=== PATIENT | female | born 1955 | race Caucasian/White ===

== ENCOUNTER 2022-07-25 11:57 | Emergency (ER) | payer MEDICARE, SELFPAY ==
[2022-07-25 12:18] VITALS: BP 152/73; PULSE 67; RESP 18; TEMP 36.1; O2SAT 100; BMI 38.0
[2022-07-25 12:30] VITALS: PULSE 72; O2SAT 98
[2022-07-25 12:31] VITALS: BP 151/69; PULSE 72; O2SAT 98
[2022-07-25 13:00] VITALS: PULSE 79; O2SAT 99
[2022-07-25 13:07] VITALS: BP 157/67; PULSE 77; O2SAT 99
--- NOTE | 2022-07-25 13:46 | PC.NURSE ---
wound care done by provider, Jennifer.
--- NOTE | 2022-07-25 15:08 | ED.SKABFB ---
HPI - Skin/Abscess/Foreign Bdy <Anny Rodriguez PA-C - Last Filed: 07/25/22 15:14> General Chief complaint: Skin/Abscess/Foreign Body Stated complaint: Abcess on stomach, Nausea Time Seen by Provider: 07/25/22 12:18 Source: patient Mode of arrival: Ambulatory Limitations: no limitations History of Present Illness HPI narrative: Patient is extremely pleasant 66 years old female, with history of diabetes mellitus per her own account moderately well controlled with oral medication, hemoglobin A1c 6.8, who noted in lower abdomen area of redness and pain about 1 week ago. She was seen by her primary care physician 3 days ago who placed her on doxycycline suspected MRSA infection. Patient has been taking doxycycline for past 3 days however she noticed the area of redness is gradually spreading. She denies fever or chills. She denies nausea vomiting diarrhea. She denies any discharge from the wound area. Mainly due to worsening pain and redness she is seeking attention in ER. Related Data Previous Rx's Medication Instructions Recorded clindamycin HCl 300 mg capsule 300 mg PO TID 10 days #30 caps 07/25/22 mupirocin 2 % topical ointment See Rx Instructions .Route 07/25/22 .COMPLEX #22 grams Allergies Allergy/AdvReac Type Severity Reaction Status Date / Time amoxicillin Allergy Verified 07/25/22 13:23 erythromycin base Allergy Verified 07/25/22 13:23 blood thinners AdvReac Uncoded 07/25/22 13:23 Review of Systems <Anny Rodriguez PA-C - Last Filed: 07/25/22 15:14> Review of Systems Narrative: 12 point review of systems is negative except for those stated above Patient History <Anny Rodriguez PA-C - Last Filed: 07/25/22 15:14> Social History Smoking Status: Former smoker Smoking Status: Former smoker alcohol intake frequency: holidays/special occasions only Substance Use Type: does not use Exam <GABE Luong Last Filed: 07/25/22 15:14> Narrative Exam Narrative: GENERAL: 66 year old patient appears stated age. Well-developed patient, in no acute distress. Appears comfortable hospital bed. HEAD: Atraumatic. Normocephalic. EYES: Pupils equal round and reactive. Extraocular motions intact. No scleral icterus. No injection or drainage. ENT: Nose without bleeding, purulent drainage. Throat without erythema, tonsillar hypertrophy or exudate. Airway patent. NECK: Trachea midline. Non tender CARDIOVASCULAR: Regular rate and rhythm without murmurs, gallops, or rubs. RESPIRATORY: Clear to auscultation. Breath sounds equal bilaterally. No wheezes, rales, or rhonchi. GASTROINTESTINAL: Abdomen soft, non-tender, nondistended. EXTREMITIES: No edema or joint tenderness. BACK: Nontender without deformity or crepitance. No flank tenderness. NEURO: AOx3. No focal deficits SKIN: Approximately 6 cm indurated reddened area in suprapubic area left side. There is no fluctuant center per se, picture more consistent with abdominal skin cellulitis, no exudate. Initial Vital Signs Initial Vital Signs: Vital Signs Temperature 97 F L 07/25/22 12:18 Pulse Rate 67 07/25/22 12:18 Respiratory Rate 18 07/25/22 12:18 Blood Pressure 152/73 H 07/25/22 12:18 Pulse Oximetry 100 07/25/22 12:18 Oxygen Delivery Method 07/25/22 12:18 <Amy Parker DO - Last Filed: 07/26/22 12:47> Initial Vital Signs Initial Vital Signs: Vital Signs Temperature 97 F L 07/25/22 12:18 Pulse Rate 67 07/25/22 12:18 Respiratory Rate 18 07/25/22 12:18 Blood Pressure 152/73 H 07/25/22 12:18 Pulse Oximetry 100 07/25/22 12:18 Oxygen Delivery Method 07/25/22 12:18 Course <Anny Rodriguez PA-C - Last Filed: 07/25/22 15:14> Vital Signs Vital signs: Vital Signs - 8 hr 07/25/22 12:18 07/25/22 12:30 07/25/22 12:31 Temperature 97 F L Pulse Rate 67 72 Respiratory Rate 18 Blood Pressure 152/73 H 151/69 H Pulse Oximetry 100 98 Oxygen Delivery Method Room Air 07/25/22 12:31 07/25/22 13:00 07/25/22 13:07 Temperature Pulse Rate 72 79 77 Respiratory Rate Blood Pressure Pulse Oximetry 98 99 99 Oxygen Delivery Method Room Air 07/25/22 13:07 Temperature Pulse Rate Respiratory Rate Blood Pressure 157/67 H Pulse Oximetry Oxygen Delivery Method <Amy DO Elena - Last Filed: 07/26/22 12:47> Vital Signs Vital signs: Vital Signs - 8 hr 07/25/22 12:18 07/25/22 12:30 07/25/22 12:31 Temperature 97 F L Pulse Rate 67 72 Respiratory Rate 18 Blood Pressure 152/73 H 151/69 H Pulse Oximetry 100 98 Oxygen Delivery Method Room Air 07/25/22 12:31 07/25/22 13:00 07/25/22 13:07 Temperature Pulse Rate 72 79 77 Respiratory Rate Blood Pressure Pulse Oximetry 98 99 99 Oxygen Delivery Method Room Air 07/25/22 13:07 Temperature Pulse Rate Respiratory Rate Blood Pressure 157/67 H Pulse Oximetry Oxygen Delivery Method MDM - Skin/Abscess/Foreign Bdy <Anny Rodriguez PA-C - Last Filed: 07/25/22 15:14> MDM Narrative Medical decision making narrative: Discussed with patient diagnosis and treatment Several etiologies for patient's symptoms considered including, but not limited to: Developing MRSA infection, cellulitis, in setting of diabetes mellitus We will try different approach, topical mupirocin ointment, unchanged antibiotic to clindamycin. Advised to follow-up with her PCP, if abscess develop, she may need I&D Findings and discharge diagnosis discussed with patient/family followed by verbalization of understanding Return precautions discussed with patient/family whom verbalize understanding of diagnosis and plan Discharge Plan Departure Patient Disposition: Home Clinical Impression: Cellulitis, Abscess of skin or subcutaneous tissue Instructions: DI for Cellulitis -- Adult Activity Restrictions/Additional Instructions: *You have been diagnosed with lower abdominal cellulitis *What to do: *Please continue to take your regular medications as directed. New medication prescriptions sent to your pharmacy: - New medication written as a paper prescription Clindamycin *Please follow up with your primary care provider in 2-3 days, if symptoms continue to be bothersome, i.e spreading redness, pain, discharge , call for an appointment. Let them know you were seen in the Emergency Department and that we ask that you be seen in follow up. We will electronically transmit a record of today's note if your PCP is in our system *Return to Emergency Department if you should have any new, worsening or concerning symptoms, such as fever greater than 101 F, shaking chills, spreading redness around wound, worsening pain, persistent vomiting or other bothersome symptoms Prescriptions: New clindamycin HCl 300 mg capsule 300 mg PO TID 10 Days Qty: 30 0RF mupirocin 2 % ointment See Rx Instructions .ROUTE .COMPLEX Qty: 22 1RF Rx Instructions: apply thin film to affected area twice a day for 10 days Stand Alone Forms: Patient Portal/API <Amy Parker, - Last Filed: 07/26/22 12:47> Cosign ED Attending Cosignature Attestation: I was immediately available in the department for consultation. Documentation has been reviewed.
== END 2022-07-25 13:47 | disposition home or self-care (01) ==
PROVIDERS: Emergency Provider Physician Assistant Medical
DX: L03.311 Cellulitis of abdominal wall (principal)
CPT/HCPCS: 99281

== ENCOUNTER 2023-08-26 16:30 | Outpatient (RCR) | payer MEDICARE, SELFPAY ==
--- NOTE | 2023-08-26 17:00 | PT.OIE ---
Current Diagnoses Unsteadiness on feet (08/26/23) Dizziness and giddiness (08/26/23) Visit Care Team Role Provider Type Eran Chaparro DO Family Provider Non-Staff Primary Care Provider Specialty: Family Practice Address: [address] , [place], [address] Email: NATALIA Srivastava Attending Provider Non-Staff Referring Provider Specialty: Nursing Address: [address] [place] [address], [address] Email: Physical Therapy Initial Evaluation PT-OP-A Visit Information Start: 08/26/23 17:41 Freq: Status: Active Protocol: Document 08/26/23 16:45 DCW (Rec: 08/26/23 17:46 DCW [id number]) Out-Patient Physical Therapy Visit Information Visit Information Visit Type Initial Evaluation Visit Start Time 16:45 Visit Stop Time 17:40 Visit Number 1 Number of HOP FARMER Visits 0 Evaluation Information Evaluation Date 08/26/23 PT-OP-B Current Condition Start: 08/26/23 17:41 Freq: Status: Active Protocol: Document 08/26/23 16:45 DCW (Rec: 08/27/23 08:54 DCW [id number]) Current Condition History of Current Condition Onset Date Four year history Current Complaints Frequent spontaneous episodes of imbalance, dizziness History of Current Condition Pt is a 67 year old female presenting with a four year history of imbalance. First began during a very stressful period of time, she would get spontaneous episodes of imbalance lasting 1-8 seconds, occurring every few minutes. Called 911, registered pharmacy technician came out to check her and she was told she was fine. Symptoms continued for a few days, pt then presented to a local ED. At that time, doctor was able to trigger symptoms during what sounds like a left [place]- Hallpike. Also performed an MRI and CT scan at that time, per pt they were all normal. Pt reports that over the last few years, symptoms have largely remained the same, occurring about once a day, but over the last few weeks, frequency increased to the point of 6-8 x/day. Reports she has tried a self-Brad at home multiple times, most recently last week, and actually since last week frequency has decreased, and today she has not had any episodes. Reports symptoms can occur at any time, whether sitting, standing, or even driving. Has had to stop driving after having an episode while driving. Treatment Goals Patient/Caregiver Goals Eliminate episodes of dizziness and return to driving PT-OP-C Subjective Start: 08/26/23 17:41 Freq: Status: Active Protocol: Document 08/26/23 16:45 DCW (Rec: 08/26/23 17:46 DCW [id number]) OP-PT Subjective Patient Comments Patient Comments They think it's those crystals. Patient Questionnaires Dizziness Handicap Inventory DHI Score 24% DHI Functional Impairment 20 to 39% Impaired (Score 20- 39) PT-OP-O Vestibular Start: 08/26/23 17:41 Freq: Status: Active Protocol: Document 08/26/23 16:45 DCW (Rec: 08/26/23 17:48 DCW [id number]) Vestibular Assessment Auditory Tests Garcia Test Within normal limits Rinne Test Negative Air Conduction Results Equal Visual Testing Smooth Pursuits Horizontal WNL Smooth Pursuits Vertical WNL Saccades Horizontal WNL Heave Test Negative Thrust Head Negative Convergence Test WNL Positional Testing Chente-Hallpike Negative Left,Negative Right Rolling Test Negative Left,Negative Right PT-OP-Q Treatments Start: 08/26/23 17:41 Freq: Status: Active Protocol: Document 08/26/23 16:45 DCW (Rec: 08/26/23 17:46 DCW [id number]) Self-Care/Home Management Treatment Activities Self-Care/Home Management Activities Intensive A&P of inner ear, discussion of possible DDx, various treatment expectations PT-OP-T Assessment and Plan Start: 08/26/23 17:41 Freq: Status: Active Protocol: Document 08/26/23 16:45 DCW (Rec: 08/27/23 08:54 DCW [id number]) Physical Therapy Assessment Rehab Potential Rehabilitation Potential Fair Evaluation Complexity Number of Personal Factors/Comorbidities 3 or More Number of Body Systems Impaired 4 or More Clinical Presentation at Evaluation Unstable Impairments Impairments Balance,Coordination, Functional Activities, Functional Mobility,Vestibular Goals Two Impairment Pt no longer driving due to spontaneous episodes of dizziness Senior Care Goal (LTG) Pt to return to driving after experiencing no episodes of dizziness over a two week period. LTG Duration 10/25/23 One Impairment Pt does not have an appropriate home exercise program Short Term Goal (STG) Pt to be independent and compliant with an appropriate HEP STG Duration 09/24/23 Assessment Summary Assessment Pt presents today with an entirely negative vestibular evaluation. Pt did, however, report upon entering the clinic, that today was the first day in months that she didn't have any episodes of dizziness, so it is unclear if she would test differently on another day. Subjectively, pt 's symptoms do not sound like they are strongly related to her vestibular system, and do not fit well into any obvious inner ear disorder. Brief, episodic episodes of dizziness are suggestive of potential BPPV, however if pt's description is accurate, these episodes are completely independent of any positional changes. Positional testing was negative today, however due to the fact that [place]- Hallpike/positional testing of BPPV has a reasonably high incidence of false negatives, retesting should be performed at a later date. With pt's complaint of poor balance overall, further balance testing should also be performed at her follow up. If balance testing shows any concerns, pt would likely benefit from balance training to decrease falls risk and improve confidence, which may help reduce subjective symptoms. Physical Therapy Plan Frequency and Duration Frequency of Treatment 2x/Week Plan of Care Start Date 08/26/23 Plan of Care End Date 10/25/23 Therapeutic Interventions Therapeutic Interventions Balance Training,Canalithic Repositioning,Coordination Training,Gait Training,Home Exercise Program,Manual Therapy,Neuromuscular Re- education,Patient/Caregiver Education,Self-Care/Home Management,Soft Tissue Mobilization,Therapeutic Activities,Therapeutic Exercises Next Visit Focus/Plan Next Note Type Treatment Note Next Visit Plan Balance testing, recheck positional testing
--- NOTE | 2023-08-26 17:00 | PT.OPPOC ---
Physical, Occupational & Speech Therapy At [facility] Current Diagnoses Unsteadiness on feet (08/26/23) Dizziness and giddiness (08/26/23) Visit Care Team Role Provider Type Eran Chaparro DO Family Provider Non-Staff Primary Care Provider Specialty: Family Practice Address: [address] , [place], [address] Email: NATALIA Srivastava Attending Provider Non-Staff Referring Provider Specialty: Nursing Address: [address] [place], [address] Email: Plan Of Care PT-OP-T Assessment and Plan Start: 08/26/23 17:41 Freq: Status: Active Protocol: Document 08/26/23 16:45 DCW (Rec: 08/27/23 08:54 DCW [id number]) Physical Therapy Assessment Rehab Potential Rehabilitation Potential Fair Evaluation Complexity Number of Personal Factors/Comorbidities 3 or More Number of Body Systems Impaired 4 or More Clinical Presentation at Evaluation Unstable Impairments Impairments Balance,Coordination, Functional Activities, Functional Mobility,Vestibular Goals Two Impairment Pt no longer driving due to spontaneous episodes of dizziness Fruit Culler Goal (LTG) Pt to return to driving after experiencing no episodes of dizziness over a two week period. LTG Duration 10/25/23 One Impairment Pt does not have an appropriate home exercise program Short Term Goal (STG) Pt to be independent and compliant with an appropriate HEP STG Duration 09/24/23 Assessment Summary Assessment Pt presents today with an entirely negative vestibular evaluation. Pt did, however, report upon entering the clinic, that today was the first day in months that she didn't have any episodes of dizziness, so it is unclear if she would test differently on another day. Subjectively, pt 's symptoms do not sound like they are strongly related to her vestibular system, and do not fit well into any obvious inner ear disorder. Brief, episodic episodes of dizziness are suggestive of potential BPPV, however if pt's description is accurate, these episodes are completely independent of any positional changes. Positional testing was negative today, however due to the fact that Chen[place]- Hallpike/positional testing of BPPV has a reasonably high incidence of false negatives, retesting should be performed at a later date. With pt's complaint of poor balance overall, further balance testing should also be performed at her follow up. If balance testing shows any concerns, pt would likely benefit from balance training to decrease falls risk and improve confidence, which may help reduce subjective symptoms. Physical Therapy Plan Frequency and Duration Frequency of Treatment 2x/Week Plan of Care Start Date 08/26/23 Plan of Care End Date 10/25/23 Therapeutic Interventions Therapeutic Interventions Balance Training,Canalithic Repositioning,Coordination Training,Gait Training,Home Exercise Program,Manual Therapy,Neuromuscular Re- education,Patient/Caregiver Education,Self-Care/Home Management,Soft Tissue Mobilization,Therapeutic Activities,Therapeutic Exercises Next Visit Focus/Plan Next Note Type Treatment Note Next Visit Plan Balance testing, recheck positional testing Plan of Care Dates Plan of Care Start Date 08/26/23 Plan of Care End Date 10/25/23 Electronically Signed by: Vladimir Whitmore, PT 08/27/23 0855 If you are in agreement with this Plan of Care, please return a signed and dated copy. I have reviewed this Plan of Care and certify that the skilled therapy services above are required to meet the patient?s needs. Physician Signature Date Printed Name and Credentials Clinical Instructor Signature Printed Name and Credentials
--- NOTE | 2023-09-20 15:58 | PT.OPDS ---
Current Diagnoses Unsteadiness on feet (08/26/23) Dizziness and giddiness (08/26/23) Visit Care Team Role Provider Type Eran Chaparro DO Family Provider Non-Staff Primary Care Provider Specialty: Family Practice Address: [address] , [place], [address] Email: NATALIA Srivastava Attending Provider Non-Staff Referring Provider Specialty: Nursing Address: [address] [place] [address], [address] Email: Visit Number Visit Number 1 Discharge Summary PT-OP-B Current Condition Start: 08/26/23 17:41 Freq: Status: Active Protocol: Document 08/26/23 16:45 DCW (Rec: 08/27/23 08:54 DCW [id number]) Current Condition History of Current Condition Onset Date Four year history Current Complaints Frequent spontaneous episodes of imbalance, dizziness History of Current Condition Pt is a 67 year old female presenting with a four year history of imbalance. First began during a very stressful period of time, she would get spontaneous episodes of imbalance lasting 1-8 seconds, occurring every few minutes. Called 911, photoengraving supervisor came out to check her and she was told she was fine. Symptoms continued for a few days, pt then presented to a local ED. At that time, doctor was able to trigger symptoms during what sounds like a left [place]- Hallpike. Also performed an MRI and CT scan at that time, per pt they were all normal. Pt reports that over the last few years, symptoms have largely remained the same, occurring about once a day, but over the last few weeks, frequency increased to the point of 6-8 x/day. Reports she has tried a self-Brad at home multiple times, most recently last week, and actually since last week frequency has decreased, and today she has not had any episodes. Reports symptoms can occur at any time, whether sitting, standing, or even driving. Has had to stop driving after having an episode while driving. Treatment Goals Patient/Caregiver Goals Eliminate episodes of dizziness and return to driving PT-OP-C Subjective Start: 08/26/23 17:41 Freq: Status: Active Protocol: Document 08/26/23 16:45 DCW (Rec: 08/26/23 17:46 DCW [id number]) OP-PT Subjective Patient Comments Patient Comments They think it's those crystals. Patient Questionnaires Dizziness Handicap Inventory DHI Score 24% DHI Functional Impairment 20 to 39% Impaired (Score 20- 39) PT-OP-O Vestibular Start: 08/26/23 17:41 Freq: Status: Active Protocol: Document 08/26/23 16:45 DCW (Rec: 08/26/23 17:48 DCW [id number]) Vestibular Assessment Auditory Tests Garcia Test Within normal limits Rinne Test Negative Air Conduction Results Equal Visual Testing Smooth Pursuits Horizontal WNL Smooth Pursuits Vertical WNL Saccades Horizontal WNL Heave Test Negative Thrust Head Negative Convergence Test WNL Positional Testing [place]-Hallpike Negative Left,Negative Right Rolling Test Negative Left,Negative Right PT-OP-T Assessment and Plan Start: 08/26/23 17:41 Freq: Status: Active Protocol: Document 09/20/23 15:57 DCW (Rec: 09/20/23 15:58 DCW [id number]) Physical Therapy Assessment Assessment Summary Assessment Pt phoned clinic requesting discharge, reports she is scheduled for an upcoming surgery and cannot fit in follow-up visits into her schedule. Physical Therapy Plan Discharge Physical Therapy Discharge Reasons Patient Request Next Visit Focus/Plan Next Note Type Discharge Summary
== END 2023-09-20 16:08 ==
LOC: PHYS 16:30
PROVIDERS: Family Provider Family Medicine; PCP Family Medicine; Referring Provider Nurse Practitioner Family; Visit Provider Nurse Practitioner Family
DX: R26.81 Unsteadiness on feet (principal); R42 Dizziness and giddiness
CPT/HCPCS: 97163; 97535

== ENCOUNTER 2023-10-14 06:13 | Day surgery (SDC) | payer MEDICARE, SELFPAY ==
[2023-10-04 15:09] VITALS: BMI 38.0
[2023-10-14] VITALS (10 sets, daily range): BP systolic 91–171; BP diastolic 52–96; PULSE 52–82; RESP 16–22; TEMP 36.1–36.2; O2SAT 94–98; BMI 36.5
[2023-10-14] MEDS: LACTATED RINGERS 1,000 ML 42 ML IV ×2 (07:16→09:00)
[2023-10-14] MEDS: ACETAMINOPHEN 325 MG TABLET 975 MG PO (07:16)
[2023-10-14 07:43] LABS: Add Manual Diff / Slide Review NO; Basophils Absolute Auto 100 /uL (0-100); Basophils Percent Auto 1.4 % (0-2); Eosinophils Absolute Auto 200 /uL (0-450); Eosinophils Percent Auto 2.5 % (2-4); Hematocrit 39.8 % (36-46); Lymphocytes Absolute Auto 2300 /uL (1100-4500); Lymphocytes Percent Auto 28.3 % (25-40); Mean Corpuscular HGB Conc 32.8 % (30-36); Mean Corpuscular Hemoglobin 28.3 PG (26-34); Mean Corpuscular Volume 86.4 fL (80-100); Monocytes Absolute Auto 600 /uL (0-900); Neutrophils Absolute Auto 4800 /uL (1500-7000); Neutrophils Percent Auto 59.8 % (50-75); Platelet Count 244 X10^3/uL (150-400); Red Blood Cell Count 4.61 X10^6/uL (4.0-5.2); Red Cell Distribution Width 14.4 % (11.6-14.8)
--- NOTE | 2023-10-14 07:51 | PM.PREOP ---
Pre-operative Note Interval Note History & Physical reviewed/Exam performed by Physician: Yes Changes to H&P: No
--- NOTE | 2023-10-14 07:55 | SUR.PREOP ---
Block start time [0745] . Monitoring initiated and maintained throughout procedure. Oxygen and medications given per anesthesiologist instructions. Patient remained stable throughout procedure, no adverse reactions noted. Block end time [0752].
[2023-10-14] MEDS: CEFAZOLIN 2 GM/100 ML PREMIX 100 ML IV (08:00)
[2023-10-14] MEDS: TRANEXAMIC ACID 1,000 MG VIAL 1000 MG INJ (08:15)
--- NOTE | 2023-10-14 09:05 | SUR.OPER ---
Lateral on padded OR bed with keller bag positioner, head on pillow, gel axillary roll in place, bottom leg bent with gel pad under knee to foot, upper leg straight and supported with pillows. Operative arm secured in shoulder positioning suspension device. non-operative arm secured on padded arm board. Safety belt at hip, tape over blanket securing lower legs.
[2023-10-14] MEDS: BUPIVACAINE 0.5% (PF) 30 ML, EPINEPHrine 0.15 MG INJ (09:17)
--- NOTE | 2023-10-14 09:53 | PM.OP.1 ---
Operative Date/Time/Diagnoses Date of procedure: 10/14/23 Time of procedure: 09:54 Pre-op diagnosis: Right rotator cuff tear, biceps tendonitis and acromioclavicular joint arthritis Post-op diagnosis: same Procedure & Clinicians Procedure: 1. Right rotator cuff repair 2. Biceps tenodesis arthroscopic 3. Distal clavicle excision arthroscopic 4. Subacromial decompression and acromioplasty 5. Extensive debridement, arthroscopic Same procedure as scheduled: Yes Indications: Indications: This is a 68-year-old female who Has a history of right shoulder pain. Has had no response thus far to nonoperative treatment. We discussed at length that surgery for a rotator cuff tear is primarily for pain and no guarantees were made regarding strength and range of motion. Patient was again explained the risks, benefits and alternatives to surgery. All questions were answered. The patient wished to proceed. Surgeon: Holden Stevens Golf Superintendent: Samina Huddleston Anesthesia Type: General Operative Notes Findings: Findings: Glenohumeral joint-mild signs of osteoarthritis with grade 2 chondromalacia. There is degenerative changes noted to the labrum anteriorly and posteriorly Biceps tendon: Partial tears with synovitis and erythema throughout Subscapularis: Intact Inferior capsule: Intact Rotator cuff: The supraspinatus had a complete tear at the footprint Subacromial space: Extensive synovitis, acromial spur noted Acromioclavicular joint: Arthritis as noted under direct visualization and preoperative imaging Closure Type: primary Specimen(s): none sent Prosthetic devices, grafts, tissues, transplants, or devices: Fiber tack anchor times 2, SwiveLock anchor x2 Estimated Blood Loss (mL): 10 Blood products transfused: none Procedure in detail: The patient was seen preoperatively. Risks and benefits were explained, and my initials were marked on the right shoulder. A block was performed by anesthesia. The patient was brought to the operating room and placed supine on the operating table and underwent smooth induction of general anesthesia. There were then placed into a lateral decubitus position. 2 g of Ancef were given intravenously prior to the start of the operation, and 1 g of TXA was also given. The arm was prepped and draped in the standard sterile fashion using chlorhexidine. Appropriate drying time was observed. Before beginning the procedure, a time-out was performed and again my initials were confirmed the correct side. 15 cc of 0.25% Marcaine with epinephrine were injected into the subacromial space prior to start. A standard posterior portal was then established. On entering the glenohumeral joint there was the above-noted cartilage pathology. An anterior portal was established outside in. In the glenohumeral joint, the biceps was noted to be partially torn and erythematous and the subscapularis was intact. The undersurface of the rotator cuff was torn at the footprint and was noted to be communicating. The inferior capsule was noted to be intact. There was some labral degeneration noted both anterior and posterior. Extensive synovitis noted. The labral tissue was examined, it was noted to have [id number] degenerative changes with fraying and tearing. There was subsequent expected degenerative changes in synovitis along the anterior articular capsule and a reflection of the capsule onto the glenoid bone. There were synovitic changes at the biceps tendon and its anchor on the supraglenoid tubercle. For these aforementioned reasons, arthroscopic debridement was performed with a 4.0 mm shaver, through the anterior portal, of the labral tissue, the articular capsule, biceps anchor complex, and glenoid bone. We then established into the subacromial space and a lateral portal was made. A bursectomy was then performed. The coracoclavicular ligament was minimally released off the anterior acromion and a gentle acromioplasty was performed enough for better visualization and to remove significant spurs. This was done with a 4.0 mm shaver and transformed the acromion from a type 2 acromion into a type 1 acromion. Once bursectomy, acromioplasty was performed we had full visualization of the rotator cuff in the anterior margin of the biceps. In order to perform a biceps tenodesis, an anterior anchor was placed and 2 passes were made through the biceps tendon, this was then placed through a knotless mechanism of the anchor for a secure repair and biceps tenodesis. It was noted at this time that the patient had complete 1.5 cm tear of the supraspinatus. We then freshened up the footprint with a shaver and debrided the cuff tear edges. Two medial row Anchors were placed. I then passed sequentially from anterior to posterior. 2 lateral row trans osseous equivalent knotless anchors were placed creating a secure double row knotless repair. Final arthroscopic pictures were obtained demonstrating a secure repair. Last, I turned my attention to the distal clavicle excision. The to her preoperative pain directly over the AC joint and imaging as well as under direct visualization having spurs and narrow joint space we decided to go forward with a distal clavicle excision. Using a 4.0 mm bur, I excised about 8 mm of distal clavicle medial to the joint. The wounds were closed with 3-0 Monocryl and dressed with Xeroform, 4x4s, ABDs and they were placed into a sling. Patient was woken from anesthesia and transported to recovery unit without any complications. Assisting participation: This operation could not have been safely performed (without compromising the technical results or length of the procedure) without the assistance of a skilled surgical garment assembly supervisor. The surgical garment assembly supervisor was medically necessary for proper positioning, retraction and manipulation of instruments, proper exposure, graft prep, and manipulation of tissue. Complications: none Post-operative Condition: stable Disposition: PACU Plan for aftercare: Postoperatively patient will be nonweightbearing to the operative extremity. Must remain in a sling for 6 weeks with no active range of motion. Okay for dressings to come off in 3 days, take a shower with warm soap and water and then placed Band-Aids over the wounds. After a total of 5 days from surgery all dressings may come off. Keep follow-up appointment in 2 weeks.
--- NOTE | 2023-10-14 11:40 | SUR.PHASEII ---
Shoulder Immobilizer applied. To be adjusted by PT.
== END 2023-10-14 11:50 | disposition home or self-care (01) ==
PROVIDERS: Nurse Anesthetist, Certified Registered; Family Provider Family Medicine; PCP Family Medicine; Referring Provider Orthopaedic Surgery; Visit Provider Orthopaedic Surgery
PROC: (CPT 29827; principal; 2023-10-14 07:45)
DX: M75.111 Incomplete rotator cuff tear or rupture of right shoulder, not specified as traumatic (principal); M75.21 Bicipital tendinitis, right shoulder; M19.011 Primary osteoarthritis, right shoulder; M75.41 Impingement syndrome of right shoulder; M94.211 Chondromalacia, right shoulder; M65.811 Other synovitis and tenosynovitis, right shoulder; G89.18 Other acute postprocedural pain
CPT/HCPCS: 29827; 29823; 29826; 29824; 29828; 64450; 85025; J0171; J0330; J0360; J0690; J1100; J2405; J3010

== ENCOUNTER 2023-11-29 13:06 | Emergency (ER) | payer MEDICARE, SELFPAY ==
[2023-11-29 13:54] VITALS: BP 135/76; PULSE 70; RESP 17; TEMP 36.5; O2SAT 97; BMI 38.0
--- NOTE | 2023-11-29 14:04 | PC.NURSE ---
During triage patient decided she did not want to stay to be seen. This RN advised patient given health hx and concerns she should be evaluated by provider. Patient acknowledged teaching and verbalized understanding on leaving without being seen. Educated patient on signs and symptoms to warrant a return to ED, patient acknowledged.
--- NOTE | 2023-11-29 19:37 | ED.URI ---
HPI - URI/Sore Throat General Chief Complaint: Upper Respiratory Symptoms Stated Complaint: covid Source: patient Mode of arrival: Ambulatory History of Present Illness HPI Narrative: Patient left without seeing provider Related Data Home Medications Medication Instructions Recorded Confirmed amlodipine 2.5 mg tablet 2.5 mg PO DAILY 10/14/23 10/14/23 aspirin 81 mg chewable tablet 81 mg PO DAILY 10/14/23 10/14/23 (Aspirin Childrens) isosorbide mononitrate 30 mg 30 mg PO DAILY 10/14/23 10/14/23 tablet,extended release 24 hr levothyroxine 100 mcg tablet 100 mcg PO DAILY 10/14/23 10/14/23 (Synthroid) metformin 500 mg tablet 500 mg PO BID 10/14/23 10/14/23 omeprazole 40 mg capsule,delayed 40 mg PO DAILY 10/14/23 10/14/23 release pravastatin 20 mg tablet 20 mg PO DAILY 10/14/23 10/14/23 Previous Rx's Medication Instructions Recorded acetaminophen 325 mg tablet 975 mg (3 x 325 mg) PO NOW PRN 10/14/23 Pain, Moderate (4-6) #90 tabs oxycodone 5 mg tablet 5 mg PO PACUNOW PRN Mild or 10/14/23 moderate pain #30 tabs Allergies Allergy/AdvReac Type Severity Reaction Status Date / Time amoxicillin Allergy Doesn't Verified 11/29/23 13:54 remember Sulfa (Sulfonamide Allergy Doesn't Verified 11/29/23 13:54 Antibiotics) remember atorvastatin AdvReac Muscle Pain Verified 11/29/23 13:54 erythromycin base AdvReac Diarrhea Verified 11/29/23 13:54 rosuvastatin [From Crestor] AdvReac Muscle Pain Verified 11/29/23 13:54 blood thinners AdvReac Muscle Pain Uncoded 10/14/23 06:48 Patient History Medical History (Updated 11/29/23 @ 14:06 by Radha Dominguez RN) Anesthesia complication Pernicious anemia Neck infection (12/19/95) Clotting disorder Claustrophobia Chronic narrow angle glaucoma Asthma Arthritis Arrhythmia Hearing loss Headache Heart murmur Genital herpes Fatty liver disease, nonalcoholic History of angina Hypothyroid HLD (hyperlipidemia) Diabetes CAD (coronary artery disease) Surgical History Hx of tubal ligation History of total bilateral knee replacement History of carpal tunnel surgery of right wrist (02/11/18) Hx of cardiac catheterization History of ankle surgery History of orthopedic surgery Hx of cholecystectomy 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) Social History household members: spouse Smoking Status: Former smoker alcohol intake: current Smoking Status: Former smoker alcohol intake frequency: holidays/special occasions only Substance Use Type: does not use Exam Initial Vital Signs Initial Vital Signs: Vital Signs Temperature 97.7 F 11/29/23 13:54 Pulse Rate 70 11/29/23 13:54 Respiratory Rate 17 11/29/23 13:54 Blood Pressure 135/76 11/29/23 13:54 Pulse Oximetry 97 11/29/23 13:54 Oxygen Delivery Method Room Air 11/29/23 13:54 Course Vital Signs Vital signs: Vital Signs - 8 hr 11/29/23 13:54 Temperature 97.7 F Pulse Rate 70 Respiratory Rate 17 Blood Pressure 135/76 Pulse Oximetry 97 Oxygen Delivery Method Room Air Discharge Plan Departure Patient Disposition: Left Without Being Seen Clinical Impression: Patient left before evaluation by physician Prescriptions: No Action metformin 500 mg tablet 500 mg PO BID isosorbide mononitrate 30 mg tablet extended release 24 hr 30 mg PO DAILY amlodipine 2.5 mg tablet 2.5 mg PO DAILY omeprazole 40 mg capsule,delayed release(DR/EC) 40 mg PO DAILY levothyroxine [Synthroid] 100 mcg tablet 100 mcg PO DAILY aspirin [Aspirin Childrens] 81 mg Tablet,Chewable 81 mg PO DAILY pravastatin 20 mg tablet 20 mg PO DAILY acetaminophen 325 mg Tablet 975 mg PO NOW PRN (Reason: Pain, Moderate (4-6)) Qty: 90 0RF oxycodone 5 mg Tablet 5 mg PO PACUNOW PRN (Reason: Mild or moderate pain) Qty: 30 0RF
== END 2023-11-29 14:06 | disposition left against medical advice (07) ==
PROVIDERS: Emergency Provider Emergency Medicine; Family Provider Family Medicine; PCP Family Medicine
CPT/HCPCS: 99281

== ENCOUNTER 2025-05-25 21:23 | Emergency (ER) | payer MEDICARE, SELFPAY ==
[2025-05-25] VITALS (8 sets, daily range): BP systolic 134–183; BP diastolic 69–83; PULSE 59–71; RESP 14–24; TEMP 36.7; O2SAT 95–98; BMI 38.0
--- NOTE | 2025-05-25 21:35 | EKG_ITS ---
[facility] [address] [address] Test Date: 2025-05-25 Pat Name: Nneka Mckenzie Department: [facility] Room: Gender: Female [place] [place] [employer]: SIMONA : 1955 Requested By: Order Number: [id number] Reading MD: Measurements Intervals [place] Rate: 67 P: 17 CA: 180 QRS: -64 QRSD: 136 T: 65 QT: 452 QTc: 477 Interpretive Statements Normal sinus rhythm Left axis deviation Right bundle branch block
--- NOTE | 2025-05-25 21:38 | ED.CHESTPAIN ---
HPI - Chest Pain <Merrill Duran MD - Last Filed: 05/28/25 08:25> General Chief Complaint: Chest Pain Stated Complaint: Pain in heart area and in back Time Seen by Provider: 05/25/25 21:33 Source: patient Mode of arrival: Ambulatory Limitations: no limitations History of Present Illness HPI narrative: Patient here with has been complaints of left-sided chest pain that radiates to the left scapula off and on for the past 24 hours. Did take home nitroglycerin and did have relief but pain would come back. Patient has single-vessel bypass in [facility]. Not recent. Patient just had echocardiogram stress test at [facility] 2 weeks ago, sees her debone supervisor Dr. Jansen. Has experienced fatigue recently. Currently no chest pain but has discomfort in the left scapular area. No sweating no nausea. No shortness of breath. Related Data Home Medications ?Medication ?Instructions ?Recorded ?Confirmed amlodipine 2.5 mg tablet 2.5 mg PO DAILY 10/14/23 05/25/25 aspirin 81 mg chewable tablet 81 mg PO DAILY 10/14/23 05/25/25 (Aspirin Childrens) isosorbide mononitrate 30 mg 30 mg PO DAILY 10/14/23 05/25/25 tablet,extended release 24 hr levothyroxine 100 mcg tablet 100 mcg PO DAILY 10/14/23 05/25/25 (Synthroid) metformin 500 mg tablet 500 mg PO BID 10/14/23 05/25/25 omeprazole 40 mg capsule,delayed 40 mg PO DAILY 10/14/23 05/25/25 release pravastatin 20 mg tablet 20 mg PO DAILY 10/14/23 05/25/25 albuterol sulfate 90 mcg/actuation 2 puff inhalation Q4H PRN 05/25/25 05/25/25 aerosol inhaler shortness of breath or wheezing valacyclovir 500 mg tablet 500 mg PO BID 05/25/25 05/25/25 Previous Rx's ?Medication ?Instructions ?Recorded nitroglycerin 0.3 mg sublingual 0.3 mg sublingual Q5M PRN chest 05/26/25 tablet pain #10 tabs Allergies Allergy/AdvReac Type Severity Reaction Status Date / Time amoxicillin Allergy Doesn't Verified 05/25/25 21:28 remember Sulfa (Sulfonamide Allergy Doesn't Verified 05/25/25 21:28 Antibiotics) remember atorvastatin AdvReac Muscle Pain Verified 05/25/25 21:28 erythromycin base AdvReac Diarrhea Verified 05/25/25 21:28 rosuvastatin (From Crestor) AdvReac Muscle Pain Verified 05/25/25 21:28 blood thinners AdvReac Muscle Pain Uncoded 05/25/25 21:28 Review of Systems <Merrill Duran MD - Last Filed: 05/28/25 08:25> Review of Systems Narrative: GENERAL: Negative chills, fatigue, malaise, fever, sweats. HEENT: Negative sinus pain, ear pain, sore throat RESPIRATORY: Negative dyspnea, cough CARDIOVASCULAR: Positive chest pain, negative palpitations GASTROINTESTINAL: Negative vomiting, nausea, abdominal pain : Negative dysuria, frequency, hematuria MUSCULOSKELETAL: Negative muscle or bony pain SKIN: Negative rash, skin lesions NEUROLOGIC: Negative weakness, numbness ROS Unobtainable: All systems reviewed & are unremarkable except as noted in HPI and below Patient History <Merrill Duran MD - Last Filed: 05/28/25 08:25> Medical History (Updated 05/25/25 @ 21:41 by Merrill Duran MD) Anesthesia complication Pernicious anemia Neck infection (12/19/95) Clotting disorder Claustrophobia Chronic narrow angle glaucoma Asthma Arthritis Arrhythmia Hearing loss Headache Heart murmur Genital herpes Fatty liver disease, nonalcoholic History of angina Hypothyroid HLD (hyperlipidemia) Diabetes CAD (coronary artery disease) Surgical History Hx of tubal ligation History of total bilateral knee replacement History of carpal tunnel surgery of right wrist (02/11/18) Hx of cardiac catheterization History of ankle surgery History of orthopedic surgery Hx of cholecystectomy 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 EYES: Pupils equal round ENT: Mucous membranes moist. NECK: Trachea midline. CARDIOVASCULAR: Regular rate and rhythm RESPIRATORY: Clear to auscultation. Breath sounds equal bilaterally. No wheezes, rales, or rhonchi. GASTROINTESTINAL: Abdomen soft, non-tender BACK: No flank tenderness. EXTREMITIES: No gross deformities. NEURO: AOx4. Clear speech SKIN: Warm and dry PSYCH: Not anxious, is cooperative Initial Vital Signs Initial Vital Signs: Vital Signs Temperature 98.1 F 05/25/25 21:30 Pulse Rate 70 05/25/25 21:30 Respiratory Rate 18 05/25/25 21:30 Blood Pressure 183/83 H 05/25/25 21:30 Pulse Oximetry 98 05/25/25 21:30 Oxygen Delivery Method Room Air 05/25/25 21:30 <Ragini Yu MD - Last Filed: 05/26/25 04:44> Initial Vital Signs Initial Vital Signs: Vital Signs Temperature 98.1 F 05/25/25 21:30 Pulse Rate 70 05/25/25 21:30 Respiratory Rate 18 05/25/25 21:30 Blood Pressure 183/83 H 05/25/25 21:30 Pulse Oximetry 98 05/25/25 21:30 Oxygen Delivery Method Room Air 05/25/25 21:30 Course <Merrill Duran MD - Last Filed: 05/28/25 08:25> Orders Ordered: Discontinued Medications Aspirin (Aspirin 81 Mg Chew Tab) 324 mg PO NOW ONE Stop: 05/25/25 21:45 Last Admin: 05/25/25 22:05 Dose: 324 mg Documented By: KATYA Nitroglycerin (Nitroglycerin Oint 1 Inch/Gm Oint...G.) 0.5 inch TOP NOW ONE Stop: 05/25/25 21:45 Last Admin: 05/25/25 22:06 Dose: 0.5 inch Documented By: KATYA Vital Signs Vital signs: Vital Signs - 8 hr 05/25/25 21:30 05/25/25 21:47 05/25/25 21:56 Temperature 98.1 F Pulse Rate 70 71 Respiratory Rate 18 Blood Pressure 183/83 H 162/78 H Pulse Oximetry 98 Oxygen Delivery Method Room Air 05/25/25 22:00 05/25/25 22:00 05/25/25 22:30 Temperature Pulse Rate 62 Respiratory Rate 14 Blood Pressure 138/70 155/74 H Pulse Oximetry 98 Oxygen Delivery Method 05/25/25 22:30 05/25/25 23:00 05/25/25 23:01 Temperature Pulse Rate 60 62 62 Respiratory Rate 16 24 22 Blood Pressure Pulse Oximetry 96 96 96 Oxygen Delivery Method 05/25/25 23:01 05/25/25 23:30 05/25/25 23:30 Temperature Pulse Rate 59 L Respiratory Rate 24 Blood Pressure 137/69 134/70 Pulse Oximetry 95 Oxygen Delivery Method 05/26/25 00:00 05/26/25 00:00 05/26/25 00:30 Temperature Pulse Rate 60 66 Respiratory Rate 23 20 Blood Pressure 126/66 Pulse Oximetry 94 96 Oxygen Delivery Method 05/26/25 00:30 05/26/25 01:00 05/26/25 01:00 Temperature Pulse Rate 58 L Respiratory Rate 21 Blood Pressure 140/68 134/63 Pulse Oximetry 94 Oxygen Delivery Method 05/26/25 01:30 05/26/25 01:30 05/26/25 02:00 Temperature Pulse Rate 57 L 58 L Respiratory Rate 18 19 Blood Pressure 133/66 Pulse Oximetry 96 96 Oxygen Delivery Method 05/26/25 02:00 Temperature Pulse Rate Respiratory Rate Blood Pressure 141/68 H Pulse Oximetry Oxygen Delivery Method <Ragini Yu MD - Last Filed: 05/26/25 04:44> Orders Ordered: Discontinued Medications Aspirin (Aspirin 81 Mg Chew Tab) 324 mg PO NOW ONE Stop: 05/25/25 21:45 Last Admin: 05/25/25 22:05 Dose: 324 mg Documented By: KATYA Nitroglycerin (Nitroglycerin Oint 1 Inch/Gm Oint...G.) 0.5 inch TOP NOW ONE Stop: 05/25/25 21:45 Last Admin: 05/25/25 22:06 Dose: 0.5 inch Documented By: KATYA Vital Signs Vital signs: Vital Signs - 8 hr 05/25/25 21:30 05/25/25 21:47 05/25/25 21:56 Temperature 98.1 F Pulse Rate 70 71 Respiratory Rate 18 Blood Pressure 183/83 H 162/78 H Pulse Oximetry 98 Oxygen Delivery Method Room Air 05/25/25 22:00 05/25/25 22:00 05/25/25 22:30 Temperature Pulse Rate 62 Respiratory Rate 14 Blood Pressure 138/70 155/74 H Pulse Oximetry 98 Oxygen Delivery Method 05/25/25 22:30 05/25/25 23:00 05/25/25 23:01 Temperature Pulse Rate 60 62 62 Respiratory Rate 16 24 22 Blood Pressure Pulse Oximetry 96 96 96 Oxygen Delivery Method 05/25/25 23:01 05/25/25 23:30 05/25/25 23:30 Temperature Pulse Rate 59 L Respiratory Rate 24 Blood Pressure 137/69 134/70 Pulse Oximetry 95 Oxygen Delivery Method 05/26/25 00:00 05/26/25 00:00 05/26/25 00:30 Temperature Pulse Rate 60 66 Respiratory Rate 23 20 Blood Pressure 126/66 Pulse Oximetry 94 96 Oxygen Delivery Method 05/26/25 00:30 05/26/25 01:00 05/26/25 01:00 Temperature Pulse Rate 58 L Respiratory Rate 21 Blood Pressure 140/68 134/63 Pulse Oximetry 94 Oxygen Delivery Method 05/26/25 01:30 05/26/25 01:30 05/26/25 02:00 Temperature Pulse Rate 57 L 58 L Respiratory Rate 18 19 Blood Pressure 133/66 Pulse Oximetry 96 96 Oxygen Delivery Method 05/26/25 02:00 Temperature Pulse Rate Respiratory Rate Blood Pressure 141/68 H Pulse Oximetry Oxygen Delivery Method MDM - Chest Pain <Merrill Duran MD - Last Filed: 05/28/25 08:25> Lab Data 05/25/25 21:50 05/25/25 21:50 Labs: Lab Results 05/25/25 05/25/25 Range/Units 21:50 23:50 WBC 7.6 (4.5-11.0) X10^3/uL RBC 4.81 (4.0-5.2) X10^6/uL Hgb 13.4 (12.0-16.0) g/dL Hct 40.5 (36-46) % MCV 84.3 (80-100) fL MCH 27.9 (26-34) PG MCHC 33.1 (30-36) % RDW 14.0 (11.6-14.8) % Plt Count 246 (150-400) X10^3/uL Neut % (Auto) 62.5 (50-75) % Lymph % (Auto) 25.2 (25-40) % [place] % (Auto) 7.4 (3-14) % Eos % (Auto) 3.3 (2-4) % Baso % (Auto) 1.6 (0-2) % Neut # (Auto) 4700 (1062-9009) /uL Lymph # (Auto) 1900 (1467-6745) /uL [place] # (Auto) 600 (0-900) /uL Eos # (Auto) 200 (0-450) /uL Baso # (Auto) 100 (0-100) /uL PT 10.6 (9.4-12.5) SECONDS INR 0.9 (0.9-1.3) APTT 26 (25.1-36.5) SECONDS Sodium 140 (137-145) mmol/L Potassium 4.3 (3.4-5.1) mmol/L Chloride 104 (98-107) mmol/L Carbon Dioxide 26 (22-32) mmol/L BUN 16 (7-17) mg/dL Creatinine 0.87 (0.52-1.04) mg/dL Estimated GFR > 60 (>60) mL/min BUN/Creatinine Ratio 18.4 (6-22) Glucose 120 H (70-99) mg/dL Calcium 9.4 (8.4-10.2) mg/dL Total Bilirubin 0.7 (0.2-1.3) mg/dL AST 32 (14-36) IU/L ALT 36 H (<35) IU/L Alkaline Phosphatase 63 (38-126) U/L Troponin I < 0.012 < 0.012 (0.01-0.034) ng/mL Total Protein 7.5 (6.3-8.2) g/dL Albumin 4.9 (3.5-5.0) g/dL Globulin 2.6 (1.7-4.1) g/dL Albumin/Globulin Ratio 1.9 (1.0-2.8) Imaging Data Chest x-ray: Radiologist's Impression: [address] [address] XRay Report Signed Patient: Nneka Mckenzie MR#: [id number] : 1955 Acct:[id number] Age/Sex: 69 / F Date of Service: 05/25/25 Loc: ED Accession Number: [id number] Procedure: XR chest 1V Ordering Provider: Merrill Duran MD PROCEDURE: XR CHEST 1V INDICATIONS: Left chest pain TECHNIQUE: One view of the chest was acquired. COMPARISON: None. FINDINGS: Surgical changes and devices: Sternal wires. Lungs and pleura: Lungs are clear. No pleural effusions or pneumothorax. Mediastinum: Mediastinal contours appear normal. Heart size is normal. Bones and chest wall: No suspicious bony lesions. Overlying soft tissues appear unremarkable. IMPRESSION: No acute pulmonary process. Dictated by: Barbara Huddleston M.D. on 05/25/2025 at 21:59 Approved by: Barbara Huddleston M.D. on 05/25/2025 at 21:59 [facility] Narrative Medical decision making narrative: Patient here with has been complaints of left-sided chest pain that radiates to the left scapula off and on for the past 24 hours. Did take home nitroglycerin and did have relief but pain would come back. Patient has single-vessel bypass in [facility]. Not recent. Patient just had echocardiogram stress test at [facility] 2 weeks ago, sees her debone supervisor Dr. Jansen. Has experienced fatigue recently. Currently no chest pain but has discomfort in the left scapular area. No sweating no nausea. No shortness of breath. MDM After history and exam, nitro paste aspirin CBC CMP troponin EKG chest x-ray Differential considered: Includes but not limited to STEMI non-STEMI angina acute coronary syndrome Medical records reviewed: No recent visit for this complaint Lab Test results independently reviewed as above. Pertinent findings: Troponin less than 0.012 Independently reviewed EKG normal sinus rhythm rate 67 right bundle branch block no ST-elevation or depression Imaging studies independently reviewed: Chest x-ray no acute finding Consultations: 11:11 p.m.. I did speak with Dr. Dao, cardiology on-call for Dr. Jansen. Would like to have repeat troponin at midnight. If normal can be discharged home and increase Imdur to 60 mg daily. Re-evaluations: Discussion: [address] Duran: Sign-out to Dr. Yu, repeat troponin at midnight. Cardiology service has been contacted. Repeat troponin if normal then increase Imdur and discharge home. Diagnosis: <Ragini Yu MD - Last Filed: 05/26/25 04:44> Lab Data Labs: Lab Results 05/25/25 05/25/25 Range/Units 21:50 23:50 WBC 7.6 (4.5-11.0) X10^3/uL RBC 4.81 (4.0-5.2) X10^6/uL Hgb 13.4 (12.0-16.0) g/dL Hct 40.5 (36-46) % MCV 84.3 (80-100) fL MCH 27.9 (26-34) PG MCHC 33.1 (30-36) % RDW 14.0 (11.6-14.8) % Plt Count 246 (150-400) X10^3/uL Neut % (Auto) 62.5 (50-75) % Lymph % (Auto) 25.2 (25-40) % [place] % (Auto) 7.4 (3-14) % Eos % (Auto) 3.3 (2-4) % Baso % (Auto) 1.6 (0-2) % Neut # (Auto) 4700 (3763-2418) /uL Lymph # (Auto) 1900 (0976-1951) /uL [place] # (Auto) 600 (0-900) /uL Eos # (Auto) 200 (0-450) /uL Baso # (Auto) 100 (0-100) /uL PT 10.6 (9.4-12.5) SECONDS INR 0.9 (0.9-1.3) APTT 26 (25.1-36.5) SECONDS Sodium 140 (137-145) mmol/L Potassium 4.3 (3.4-5.1) mmol/L Chloride 104 (98-107) mmol/L Carbon Dioxide 26 (22-32) mmol/L BUN 16 (7-17) mg/dL Creatinine 0.87 (0.52-1.04) mg/dL Estimated GFR > 60 (>60) mL/min BUN/Creatinine Ratio 18.4 (6-22) Glucose 120 H (70-99) mg/dL Calcium 9.4 (8.4-10.2) mg/dL Total Bilirubin 0.7 (0.2-1.3) mg/dL AST 32 (14-36) IU/L ALT 36 H (<35) IU/L Alkaline Phosphatase 63 (38-126) U/L Troponin I < 0.012 < 0.012 (0.01-0.034) ng/mL Total Protein 7.5 (6.3-8.2) g/dL Albumin 4.9 (3.5-5.0) g/dL Globulin 2.6 (1.7-4.1) g/dL Albumin/Globulin Ratio 1.9 (1.0-2.8) [facility] Narrative Medical decision making narrative: Patient here with has been complaints of left-sided chest pain that radiates to the left scapula off and on for the past 24 hours. Did take home nitroglycerin and did have relief but pain would come back. Patient has single-vessel bypass in [facility]. Not recent. Patient just had echocardiogram stress test at [facility] 2 weeks ago, sees her debone supervisor Dr. Jansen. Has experienced fatigue recently. Currently no chest pain but has discomfort in the left scapular area. No sweating no nausea. No shortness of breath. MDM After history and exam, nitro paste aspirin CBC CMP troponin EKG chest x-ray Differential considered: Includes but not limited to STEMI non-STEMI angina acute coronary syndrome Medical records reviewed: No recent visit for this complaint Lab Test results independently reviewed as above. Pertinent findings: Troponin less than 0.012 Independently reviewed EKG normal sinus rhythm rate 67 right bundle branch block no ST-elevation or depression Imaging studies independently reviewed: Chest x-ray no acute finding Consultations: 11:11 p.m.. I did speak with Dr. Dao, cardiology on-call for Dr. Jansen. Would like to have repeat troponin at midnight. If normal can be discharged home and increase Imdur to 60 mg daily. Re-evaluations: Discussion: [address] Duran: Sign-out to Dr. Yu, repeat troponin at midnight. Cardiology service has been contacted. Repeat troponin if normal then increase Imdur and discharge home. Diagnosis: Angina Discharge Plan Departure Patient Disposition: Home Clinical Impression: Atypical chest pain Instructions: DI for Angina Activity Restrictions/Additional Instructions: Activity as tolerated. Your case was discussed with the on-call debone supervisor who recommended Imdur (Isosorbide mononitrate) increased to 60mg. Please follow-up with your primary care physician or debone supervisor for your ER visit today and continued management. Return to the ER if you develop any new or worsening symptoms, to include chest pain, shortness of breath, profuse sweating/clamminess, nausea/vomiting, or any concerning signs or symptoms. Prescriptions: New nitroglycerin 0.3 mg tablet, sublingual 0.3 mg sublingual Q5M PRN (Reason: chest pain) Qty: 10 0RF Rx Instructions: Do not exceed 3 doses per episode No Action albuterol sulfate 90 mcg/actuation HFA aerosol inhaler 2 puff INHALATION Q4H PRN (Reason: shortness of breath or wheezing) valacyclovir 500 mg tablet 500 mg PO BID metformin 500 mg tablet 500 mg PO BID isosorbide mononitrate 30 mg tablet extended release 24 hr 30 mg PO DAILY amlodipine 2.5 mg tablet 2.5 mg PO DAILY omeprazole 40 mg capsule,delayed release(DR/EC) 40 mg PO DAILY levothyroxine [Synthroid] 100 mcg tablet 100 mcg PO DAILY aspirin [Aspirin Childrens] 81 mg Tablet,Chewable 81 mg PO DAILY pravastatin 20 mg tablet 20 mg PO DAILY Referrals: Eran Chaparro DO [Primary Care Provider, Family Practice] Stand Alone Forms: Patient Portal/API ED Sign-out <Ragini Yu MD - Last Filed: 05/26/25 04:44> Sign Out Provider Sign Out Attestation: I received sign-out from Dr. Merrill Duran at 2300. Patient has a history of one-vessel bypass with recent stress and echocardiogram 2 weeks ago who presents with angina and fatigue. Workup largely negative for acute myocardial ischemia. Cardiology already consulted who recommended increase Imdur from 30 mg to 60 mg daily. Awaiting repeat troponin, if negative patient can be discharged. 02:03 patient and at bedside inform of repeat troponin undetectable. I discussed cardiology recommendation of increasing Imdur dose and provided a new prescription for sublingual nitroglycerin as patient stated her supply at home has . At discharge, patient remained hemodynamically normal and was discharged in stable condition. Ragini Yu MD Emergency Medicine
--- NOTE | 2025-05-25 21:44 | DI.RAD.S_ITS ---
PROCEDURE: XR CHEST 1V INDICATIONS: Left chest pain TECHNIQUE: One view of the chest was acquired. COMPARISON: None. FINDINGS: Surgical changes and devices: Sternal wires. Lungs and pleura: Lungs are clear. No pleural effusions or pneumothorax. Mediastinum: Mediastinal contours appear normal. Heart size is normal. Bones and chest wall: No suspicious bony lesions. Overlying soft tissues appear unremarkable. IMPRESSION: No acute pulmonary process. Dictated by: Barbara Huddleston M.D. on 05/25/2025 at 21:59 Approved by: Barbara Huddleston M.D. on 05/25/2025 at 21:59
[2025-05-25 21:59] LABS: Add Manual Diff / Slide Review NO; Hematocrit 40.5 % (36-46); Hemoglobin 13.4 g/dL (12.0-16.0); Lymphocytes Absolute Auto 1900 /uL (1100-4500); Mean Corpuscular HGB Conc 33.1 % (30-36); Mean Corpuscular Hemoglobin 27.9 PG (26-34); Mean Corpuscular Volume 84.3 fL (80-100); Platelet Count 246 X10^3/uL (150-400)
[2025-05-25 22:04] LABS: INR 0.9 (0.9-1.3); Prothrombin Time 10.6 SECONDS (9.4-12.5)
[2025-05-25] MEDS: ASPIRIN 81 MG CHEW TAB 324 MG PO (22:05)
[2025-05-25 22:06] LABS: PTT Partial Thromboplastin Tim 26 SECONDS (25.1-36.5)
[2025-05-25] MEDS: NITROGLYCERIN OINT 1 INCH/GM OINT...G. 0.5 INCH TOP (22:06)
[2025-05-25 22:31] LABS: Alanine Aminotransferase 36 IU/L (<35); Albumin 4.9 g/dL (3.5-5.0); Albumin Globulin Ratio 1.9 (1.0-2.8); Alkaline Phosphatase 63 U/L (38-126); Blood Urea Nitrogen 16 mg/dL (7-17); Calcium 9.4 mg/dL (8.4-10.2); Carbon Dioxide 26 mmol/L (22-32); Chloride 104 mmol/L (98-107); Estimated Glomerular Filt Rate > 60 mL/min (>60); Globulin 2.6 g/dL (1.7-4.1); Glucose 120 mg/dL (70-99); HEMOLYSIS 34 (0-50); Potassium 4.3 mmol/L (3.4-5.1); Sodium 140 mmol/L (137-145); Total Protein 7.5 g/dL (6.3-8.2)
[2025-05-25 22:43] LABS: Troponin I < 0.012 ng/mL (0.01-0.034)
--- NOTE | 2025-05-25 23:50 | EKG_ITS ---
[facility] [address] [address] Test Date: 2025-05-25 Pat Name: Nneka Mckenzie Department: [facility] Room: Gender: Female [employer]: SIMONA : 1955 Requested By: Order Number: [id number] Reading MD: Measurements Intervals [place] Rate: 59 P: 23 CO: 184 QRS: -61 QRSD: 136 T: 23 QT: 466 QTc: 461 Interpretive Statements Sinus bradycardia Left axis deviation Right bundle branch block
[2025-05-26] VITALS: BP 126/66; PULSE 60; RESP 23; O2SAT 94
[2025-05-26 00:24] LABS: Troponin I < 0.012 ng/mL (0.01-0.034)
[2025-05-26 00:30] VITALS: BP 140/68; PULSE 66; RESP 20; O2SAT 96
[2025-05-26 01:00] VITALS: BP 134/63; PULSE 58; RESP 21; O2SAT 94
[2025-05-26 01:30] VITALS: BP 133/66; PULSE 57; RESP 18; O2SAT 96
[2025-05-26 02:00] VITALS: BP 141/68; PULSE 58; RESP 19; O2SAT 96
--- NOTE | 2025-05-26 15:27 | PC.NURSE ---
prescription called in for NTG 0.4 mg tab SL every 5 min prn chest pain. qty: [address] Valenzuela. called into [facility].
== END 2025-05-26 02:20 | disposition home or self-care (01) ==
PROVIDERS: Emergency Medicine; Emergency Provider Student in an Organized Health Care Education/Training Program; Family Provider Family Medicine; PCP Family Medicine
DX: R07.89 Other chest pain (principal); I45.10 Unspecified right bundle-branch block; I25.10 Atherosclerotic heart disease of native coronary artery without angina pectoris; Z95.1 Presence of aortocoronary bypass graft; Z87.891 Personal history of nicotine dependence
CPT/HCPCS: 36415; 71045; 80053; 84484; 85025; 85610; 85730; 93005; 99284